=== PATIENT | male | born 1955 | race Caucasian/White ===

== ENCOUNTER 2019-05-02 10:37 | Day surgery (SDC) | payer BC ==
[~2019-05-02 10:37] MED LIST: ACETAMINOPHEN 1,000 MG/100 ML BTL IVPB ONE; CEFAZOLIN 1 Gram 1 GM/50 ML BAG IVPB ONE; CEFAZOLIN 2 Gram 2 GM/50 ML BAG IVPB ONE
[2019-05-02] MEDS ORDERED: LIDOCAINE 2% MDV (20MG/ML) 20ML VIAL IV ONE (10:38)
[2019-05-02] MEDS ORDERED: DEXAMETHASONE 4 MG/ML 1ML VIAL IVP ONE (10:38)
[2019-05-02] MEDS ORDERED: BUPIVACAINE 0.25% MPF 30ML VIAL IVP ONE (10:38)
[2019-05-02] MEDS ORDERED: PROPOFOL 10 MG/ML VIAL IV ONE (10:38)
[2019-05-02] MEDS ORDERED: BUPIVACAINE LIPOSOME/PF 133MG/10ML VIAL IV ONE (10:38)
[2019-05-02] MEDS ORDERED: MIDAZOLAM HCL 2MG/2ML VIAL IV ONE ×2 (10:38)
[2019-05-02 10:53] LABS: ABSOLUTE NEUTROPHIL COUNT 4.81; BASO % 0.7 % (0-6); EOS % 2.8 % (0-6); GRAN % 58.2 % (47-80); HEMATOCRIT 39.2 % (42.0-52.0); HEMOGLOBIN 11.7 gm/dl (14.0-18.0); LYMPH % 26.9 % (16-45); MEAN CORPUSCULAR HGB CONC 29.8 g/dl (32-36); MEAN PLATELET VOLUME 8.3 fl (7.4-10.4); MONO % 11.4 % (0-9); PLATELET COUNT 333 K/uL (130-400); RED BLOOD COUNT 5.31 M/uL (4.40-5.70); WHITE BLOOD COUNT W/O DIFF 8.3 K/uL (4.2-12.2)
[2019-05-02 11:03] LABS: MEAN CELL VOLUME 73.8 fl (81-97); RED CELL DISTRIBUTION WIDTH 18.9 % (11.5-14.5)
[2019-05-02 11:09] LABS: BLOOD UREA NITROGEN 16 mg/dL (8-23); CREATININE 0.8 mg/dL (0.7-1.2); EST GLOMERULAR FILTRATION RATE > 60 mL/min; GLUCOSE,RANDOM 98 mg/dL (74-109)
[2019-05-02] MEDS ORDERED: RINGERS SOLUTION,LACTATED 1,000 ML IV ONE (11:25)
[2019-05-02] MEDS ORDERED: BUPIVACAINE 0.5% W/EPI MPF 30 ML VIAL SQ ONE (14:07)
[2019-05-02] MEDS ORDERED: METHYLPREDNISOLONE 40MG/VIAL IU ONE (14:07)
[2019-05-02] MEDS ORDERED: MORPHINE SULFATE 10MG/1ML **1ML VIAL IU ONE (14:08)
--- NOTE | 2019-05-04 10:41 | Operative Note ---
DATE OF SURGERY: 05/02/2019 PREOPERATIVE DIAGNOSIS: Tear of the rotator cuff on the left with impingement. POSTOPERATIVE DIAGNOSES: 1. Small chronic tear of the rotator cuff. 2. Severe external impingement. 3. Arthrosis left distal clavicle. 4. Synovitis left shoulder. 5. Partial tear of the long head of the biceps tendon. 6. Superior glenohumeral labral tear. OPERATION: 1. Repair of a chronically torn rotator cuff tear on the left, open. 2. Left shoulder arthroscopy with synovectomy. 3. Left shoulder arthroscopy with interarticular debridement. 4. Left shoulder open acromioplasty, CA ligament resection, subacromial bursectomy. 5. Left shoulder distal clavicle resection. STAFF SURGEON: Raffi Awad MD ANESTHESIA: Block with sedation. PREPARATION: Chloraprep. INDIVIDUAL CONSIDERATIONS: None. PROCEDURE: The patient was taken to the operating room and had a successful induction of an interscalene block. He was then placed in a semi-seated beach chair position, prepped and draped in the usual fashion, and given IV sedation. The patient had posterior portal identified for arthroscopy. Skin was infiltrated with 0.5% Marcaine with epinephrine prior. An 18-gauge spinal needle was then easily placed in the joint, and the joint was inflated with normal saline with a 60-mL syringe. A stab wound was made, and a blunt-tipped trocar for the scope was easily placed in the joint. The joint was inflated with normal saline. An anterior accessory portal was then made just inferior to the long head of the biceps tendon which had a partial tear, I would guess about 40% torn with an unstable flap. This was debrided with a shaver. There was synovitis anteriorly which was debrided. Glenohumeral joint looked normal. There was a superior glenohumeral labral tear and some synovitis posteriorly and labral tear posteriorly. The rotator cuff at the subscap was normal, and the undersurface looked intact but was injected with inflammation. No loose bodies were seen in the inferior pouch. After irrigation, portals were closed with aaron. The patient had an anterior approach to the subacromial space and distal clavicle. Skin was again infiltrated with 0.5% Marcaine with epinephrine prior. Sharp dissection carried down through skin and subcutaneous tissues. Small veins were coagulated with a Bovie. An anterior deltoid interval was developed. Care was taken not to split the deltoid more than about 4 cm distal to the anterior tip of the acromion to prevent injury to the axillary nerve. Once in the subacromial space, there was a gold of fluid consistent with a tear. The patient had huge spurs at the AC joint and huge anterior spurs on the acromion. The deltoid was then taken subperiosteally off the anterior aspect of the acromion, over the top of the intact CA ligament, and off the anterior aspect of a highly degenerated distal clavicle. CA ligament was resected with a Bovie. Distal clavicle was resected with an oscillating saw taking about 1 cm. An anterior acromioplasty was performed taking about a centimeter most of this being downsloping spur tapering towards posteromedially to include the spurs at the AC joint. The undersurface was smoothed with a rasp. A complete bursectomy was performed. I now had a good look at the rotator cuff. There was a pinhole tear where basically I think the spurs at the AC joint had eroded a hole and a tear. This was repaired with an 0 Vicryl suture. The remainder of the rotator cuff and the supraspinatus insertion looked partially torn and macerated but did not need a repair. After irrigation, the deltoid was reattached to the remaining acromion with multiple #2 Vicryl going directly through the bony acromion. The periosteal cuff of the distal clavicle was closed with running #2 Vicryl. Anterior deltoid interval was closed with running 0 Vicryl. Subcu was closed with 2-0 plus Vicryl in layers and skin was closed with aaron. The patient had 15 mL of 0.5% Marcaine with epinephrine along with 40 mg of Depo-Medrol and 10 mg of morphine injected into the subacromial space through a sterile 18-gauge needle. A sterile bulky compressive dressing and sling were applied. The patient tolerated the procedure well. Needle and sponge counts were correct. Estimated blood loss was minimal. He was taken back to recovery in good condition. There were no complications. [facility]ammie
== END 2019-05-02 14:55 | disposition home or self-care (01) ==
LOC: SUR 10:37
PROVIDERS: ATTEND Orthopaedic Surgery
DX: M75.102 Unspecified rotator cuff tear or rupture of left shoulder, not specified as traumatic (principal); S43.432A Superior glenoid labrum lesion of left shoulder, initial encounter; M66.829 Spontaneous rupture of other tendons, unspecified upper arm; M75.42 Impingement syndrome of left shoulder; M19.012 Primary osteoarthritis, left shoulder; M65.812 Other synovitis and tenosynovitis, left shoulder; C25.9 Malignant neoplasm of pancreas, unspecified; J45.909 Unspecified asthma, uncomplicated; F17.210 Nicotine dependence, cigarettes, uncomplicated
CPT/HCPCS: 29820; 29822; 23130; 23412; 23120; 01630; 64415; 80048; 85025; J0690 ×2; C9290; J2270; 76942; J1030; J7120